=== PATIENT | female | born 1995 ===

== ENCOUNTER → 2019-05-05 | Outpatient (CLI) | payer OTHER | LOC: MHCPAIN 14:58 | DX: M47.817 Spondylosis without myelopathy or radiculopathy, lumbosacral region (principal); M54.16 Radiculopathy, lumbar region | CPT/HCPCS: G0463 ==

== ENCOUNTER → 2019-05-14 | Outpatient (CLI) | payer OTHER | LOC: MHCPAIN 09:09 | DX: M51.27 Other intervertebral disc displacement, lumbosacral region (principal); M54.17 Radiculopathy, lumbosacral region | CPT/HCPCS: J1100; Q9967 ==

== ENCOUNTER → 2019-06-18 | Outpatient (CLI) | payer OTHER | LOC: MHCPAIN 06-04 15:48 | DX: M53.3 Sacrococcygeal disorders, not elsewhere classified (principal) | CPT/HCPCS: J1100; Q9967 ==

== ENCOUNTER → 2019-06-30 | Outpatient (CLI) | payer OTHER | LOC: MHCPAIN 09:47 | DX: M53.3 Sacrococcygeal disorders, not elsewhere classified (principal); M47.27 Other spondylosis with radiculopathy, lumbosacral region; G89.29 Other chronic pain | CPT/HCPCS: G0463; J0330 ==